=== PATIENT | male | born 1950 | race Caucasian/White ===

== ENCOUNTER 2020-05-22 18:46 | Inpatient (IN) | payer MEDICARE ==
[2020-05-22 20:31] VITALS: BP 142/73
[2020-05-22] MEDS ORDERED: BUSPIRONE HCL10 MG PO (20:41)
[2020-05-22] MEDS ORDERED: SINEMET 25-1001 EACH PO (20:43)
[2020-05-22] MEDS ORDERED: HYDR1000 IM (20:55)
[2020-05-22] MEDS ORDERED: DULCOLAX10 M1 R (20:56)
[2020-05-22] MEDS ORDERED: EXELON1 EACH T (20:57)
[2020-05-22] MEDS ORDERED: FLOMAX0.4 MG PO (20:57)
[2020-05-22] MEDS ORDERED: FLUOXETINE HCL40 MG PO (20:59)
[2020-05-22] MEDS ORDERED: MILK OF MA400 MG/51 PO (21:00)
[2020-05-22] MEDS ORDERED: TYLENOL325 M1 PO (21:03)
[2020-05-22] MEDS ORDERED: OMEPRAZOLE40 MG PO (21:03)
[2020-05-22] MEDS ORDERED: VISTARIL25 MG PO (21:04)
[2020-05-22] MEDS ORDERED: TUBERSOL1 M1 IC (21:06)
[2020-05-22 23:35] VITALS: BP 142/73
[2020-05-23 04:31] LABS: BILIRUBIN Negative (Negative); BLOOD Negative (Negative); COLOR Yellow (Yellow); GLUCOSE Negative (Negative); KETONE Negative (Negative); LEUKO ESTERASE Negative (Negative); NITRITE Negative (Negative); PH 5.5 (4.5-8.0); SPECIFIC GRAVITY 1.025 (1.001-1.030)
[2020-05-23 04:32] LABS: CLARITY Clear (Clear)
[2020-05-23 04:44] LABS: BACTERIA TRACE; EPITHELIAL CELLS 0-2; MUCOUS 1+; RBC 0-2 rbc/hpf (0-2)
[2020-05-23 06:45] LABS: BASO % 0.3 % (0.0-1.0); EOS # 0.2 10*3/uL (0.0-0.4); EOS % 4.1 % (1.0-4.0); HEMATOCRIT 42.5 % (42.0-52.0); LYMPH % 34.4 % (27.0-41.0); MEAN CELL VOLUME 92.2 fl (80.0-94.0); MEAN CORPUSCULAR HGB 29.9 pg (27.0-31.0); MEAN CORPUSCULAR HGB CONC 32.5 g/dl (33.0-37.0); MEAN PLATELET VOLUME 9.1 fl (9.6-12.3); MONO # 0.6 10*3/uL (0.1-1.0); MONO % 9.7 % (3.0-9.0); NEUT % 51.2 % (47.0-73.0); PLATELET COUNT AUTOMATED 239 10*3/uL (130-400); RED BLOOD COUNT 4.61 10*6/uL (4.50-5.90); WHITE BLOOD COUNT 5.9 10*3/uL (4.8-10.8)
[2020-05-23 07:26] LABS: CHLORIDE 113 mmol/L (98-107); POTASSIUM 3.8 mmol/L (3.5-5.1); SODIUM 148 mmol/L (136-145)
[2020-05-23 07:46] VITALS: BP 142/78
[2020-05-23 07:46] LABS: ALBUMIN 3.6 gm/dl (3.1-4.5); ALKALINE PHOSPHATASE 116 U/L (45-117); BUN 19 mg/dl (7-24); CHOLESTEROL 184 mg/dL (<200); CREATININE 0.69 mg/dL (0.70-1.30); HDL CHOLESTEROL 59 mg/dl (40-60); LDL CHOLESTEROL 110 mg/dL (9-159); SGOT/AST 13 IU/L (3-35); SGPT/ALT 18 U/L (12-78); TOTAL PROTEIN 6.7 gm/dL (6.4-8.2); TRIGLYCERIDES 76 mg/dl (<150); VLDL CHOLESTEROL 15 mg/dL (6-40)
[2020-05-23 08:29] LABS: VITAMIN D, 25-HYDROXY 47.2 ng/mL (30-100)
[2020-05-23 20:00] VITALS: BP 111/67
[2020-05-24 06:39] LABS: BUN 22 mg/dl (7-24); CHLORIDE 112 mmol/L (98-107); CREATININE 0.71 mg/dL (0.70-1.30); POTASSIUM 3.8 mmol/L (3.5-5.1); SODIUM 145 mmol/L (136-145)
[2020-05-24 08:00] VITALS: BP 148/83
[2020-05-25 07:31] VITALS: BP 122/68; BP 97/51
[2020-05-25 19:14] VITALS: BP 141/75
[2020-05-26 07:41] VITALS: BP 113/57
[2020-05-26 19:33] VITALS: BP 115/62
[2020-05-27 08:00] VITALS: BP 132/88
[2020-05-27 19:24] VITALS: BP 138/76
[2020-05-28 07:44] VITALS: BP 132/83
[2020-05-29 07:31] VITALS: BP 148/67
[2020-05-29 19:53] VITALS: BP 134/73
[2020-05-30 07:19] VITALS: BP 142/72
[2020-05-30 19:51] VITALS: BP 114/86
[2020-05-31 07:39] VITALS: BP 148/61
[2020-05-31 19:44] VITALS: BP 113/67
[2020-06-01 07:29] VITALS: BP 122/62
[2020-06-01 19:29] VITALS: BP 103/50
[2020-06-02 03:08] VITALS: BP 148/72
[2020-06-02 07:38] VITALS: BP 140/73
[2020-06-02 19:48] VITALS: BP 127/77
[2020-06-03 07:21] VITALS: BP 134/60
[2020-06-03] MEDS ORDERED: TRIPLE ANTIBIOT14 GM T (08:59)
[2020-06-03] MEDS ORDERED: RIVASTIGMINE1 EAC2 T (09:12)
[2020-06-03] MEDS ORDERED: MIRTAZAPINE15 M1 PO (09:12)
[2020-06-03] MEDS ORDERED: ROZEREM8 MG PO (09:12)
[2020-06-03] MEDS ORDERED: MEMANTINE HCL10 MG PO (09:12)
[2020-06-03] MEDS ORDERED: INVEGA SUSTENN156 MG IM (09:12)
[2020-06-03] MEDS ORDERED: LORAZEPAM1 MG PO (09:27)
[2020-06-03] MEDS ORDERED: LORAZEPAM2 MG/1 M1 IM (09:27)
== END 2020-06-03 11:49 | disposition other institution (70) | DRG 883 ==
LOC: 3N 18:46
PROVIDERS: Counselor Professional; Student in an Organized Health Care Education/Training Program; ADMIT Psychiatry & Neurology Psychiatry; ATTEND Psychiatry & Neurology Psychiatry
PROC: 0HQ0XZZ Repair Scalp Skin, External Approach (ICD-10-PCS; principal; 2020-06-02)
DX: F63.81 Intermittent explosive disorder (principal); F02.81 Dementia in other diseases classified elsewhere, unspecified severity, with behavioral disturbance; F33.1 Major depressive disorder, recurrent, moderate; E51.2 Wernicke's encephalopathy; E87.0 Hyperosmolality and hypernatremia; N13.8 Other obstructive and reflux uropathy; K21.9 Gastro-esophageal reflux disease without esophagitis; I65.23 Occlusion and stenosis of bilateral carotid arteries; G30.9 Alzheimer's disease, unspecified; R26.2 Difficulty in walking, not elsewhere classified; E55.9 Vitamin D deficiency, unspecified; E78.5 Hyperlipidemia, unspecified; D50.8 Other iron deficiency anemias; I25.10 Atherosclerotic heart disease of native coronary artery without angina pectoris; R13.12 Dysphagia, oropharyngeal phase; R47.1 Dysarthria and anarthria; I10 Essential (primary) hypertension; R00.1 Bradycardia, unspecified; D64.9 Anemia, unspecified; E87.8 Other disorders of electrolyte and fluid balance, not elsewhere classified; N40.1 Benign prostatic hyperplasia with lower urinary tract symptoms; M19.90 Unspecified osteoarthritis, unspecified site; Z20.828 Contact with and (suspected) exposure to other viral communicable diseases; F10.96 Alcohol use, unspecified with alcohol-induced persisting amnestic disorder; S01.81XA Laceration without foreign body of other part of head, initial encounter; W18.30XA Fall on same level, unspecified, initial encounter; Y93.89 Activity, other specified; Y92.238 Other place in hospital as the place of occurrence of the external cause; Y99.8 Other external cause status; Z79.899 Other long term (current) drug therapy